=== PATIENT | male | born 1950 | race Caucasian/White ===

== ENCOUNTER → 2017-03-10 | Outpatient (CLI) | payer MEDICARE ==
[~2017-03-10] MED LIST: ALBUPOW38 PO; DIAZ5TAB PO; ENOX40P SQ; FERR325T PO; HYDR-3583 PO; LEVO.125 PO; MAXA10TA2 PO; MS C200T2 PO; OXYC-360 PO; PHEN-414 PO; PHEN15TA8 PO; SUMA100T2 PO; SYNT25TA PO; VALI5TAB PO; VENTAER INH
[2017-03-10 12:37] LABS: AUTOMATED NEUTROPHIL # 4.8 TH/MM3 (1.8-7.7); BASOPHIL % 0.6 % (0.0-2.0); EOSINOPHIL # 0.1 TH/MM3 (0-0.4); HEMATOCRIT 39.9 % (39.0-51.0); HEMO FLAGS DIFF FINAL; LYMPH % 20.7 % (9.0-44.0); LYMPHOCYTE # 1.4 TH/MM3 (1.0-4.8); MEAN CELL VOLUME 90.2 FL (80.0-100.0); MEAN CORPUSCULAR HEMOGLOBIN 30.4 PG (27.0-34.0); MEAN CORPUSCULAR HGB CONC 33.7 % (32.0-36.0); MONO % 7.3 % (0.0-8.0); NEUT % 70.4 % (16.0-70.0); PLATELET COUNT 363 TH/MM3 (150-450); RED BLOOD COUNT 4.42 MIL/MM3 (4.50-5.90); RED CELL DISTRIBUTION WIDTH 13.7 % (11.6-17.2); WHITE BLOOD COUNT 6.8 TH/MM3 (4.0-11.0)
[2017-03-10 12:52] LABS: APTT (PATIENT) 27.1 SEC (24.3-30.1); PROTHROMBIN TIME - PATIENT 11.1 SEC (9.8-11.6)
[2017-03-10 13:09] LABS: ANION GAP 8 MEQ/L (5-15); AST (GOT) 23 U/L (15-37); BICARBONATE 25.7 MEQ/L (21.0-32.0); BLOOD UREA NITROGEN 12 MG/DL (7-18); CHLORIDE 104 MEQ/L (98-107); GLOMERULAR FILTRATION RATE 83 ML/MIN (>89); GLUCOSE,FASTING 89 MG/DL (74-99); POTASSIUM 3.8 MEQ/L (3.5-5.1); SODIUM (NA) 138 MEQ/L (136-145)
[2017-03-10 13:10] LABS: ALT (GPT) 27 U/L (12-78)
[2017-03-10 13:13] LABS: ALKALINE PHOSPHATASE 131 U/L (45-117); TOTAL BILIRUBIN ADULT 0.6 MG/DL (0.2-1.0)
--- NOTE | 2017-03-11 14:48 | EKG ---
Date Performed: 03/10/2017 Time Performed: 12:32:45 PTAGE: 66 years EKG: Sinus rhythm NORMAL ECG Compared to prior tracing no significant change PREVIOUS TRACING : 02/11/13 DOCTOR: Rocky Biswas Interpretating Date/Time 03/11/2017 14:47:27
== END ==
LOC: CPRE 12:04
PROVIDERS: ATTEND Orthopaedic Surgery
DX: Z01.812 Encounter for preprocedural laboratory examination (principal); Z01.810 Encounter for preprocedural cardiovascular examination; M22.41 Chondromalacia patellae, right knee
CPT/HCPCS: 36415; 80053; 85025; 85610; 85730; 93005

== ENCOUNTER → 2017-03-19 | Day surgery (SDC) | payer MEDICARE ==
[~2017-03-19] VITALS: Ht 182.9 cm; Wt 67.1 kg
[~2017-03-19] MED LIST changes: +*morphine SULFATE 8 MG/ML PERIprocedure ONLY ONE; +ACETAMINOPHEN/HYDROcodone 325 MG/5 MG TAB PO PRN; -ALBUPOW38 PO; +CHLORHEXIDINE GLUCONATE 2 % 1 PACK (2 CLOTHS) TOPICAL PRN; +CHLORHEXIDINE GLUCONATE 4% SOLN 120 ML BTL TOPICAL SCH; +CLINDAMYCIN 900 MG/NS 100 ML IV SCH; +DEXAMETHASONE SOD PHOS 4 MG/ML VIAL ONE; +DO NOT ADM ANY ANTICOAGULANT DRUGS PRN; -ENOX40P SQ; +FAMOTIDINE 20 MG/2 ML VIAL ONE; -FERR325T PO; +INSULIN HUMAN REGULAR 1,000 UNITS/10 ML VIAL SQ PRN; +KETOROLAC TROMETHAMINE 30 MG/ML (IVP) VIAL IVP ONE; +LACTATED RINGER'S 1000 ML IV PRN; +LIDOCAINE HCL 1% PF 5 ML AMPULE OTHER ONE; +METOPROLOL TARTRATE 25 MG TAB PO PRN; +MIDAZOLAM HCL 2 MG/2 ML VIAL ONE; +MORPHINE SULFATE 4 MG/ML INJ IV PUSH PRN; +ONDANSETRON HCL 4 MG/2 ML VIAL IV PRN; +ONDANSETRON HCL 4 MG/2 ML VIAL IV PUSH ONE; -OXYC-360 PO; -PHEN15TA8 PO; +PROPOFOL 200 MG/20 ML AMP IV ONE; +SODIUM CHLORID 0.9% 500 ML IV PRN; +SODIUM CHLORIDE 0.9% FLUSH 5 ML FLUSH IVF PRN; +SODIUM CHLORIDE 0.9% FLUSH 5 ML FLUSH IVF SCH; +SODIUM CHLORIDE 0.9% INJ 100 ML ONE; -SUMA100T2 PO; -SYNT25TA PO; -VALI5TAB PO; +VANCOMYCIN 1250 MG/NS 250 ML (for 70-84 kg) IV SCH
[2017-03-19 10:15] VITALS: BP 116/76; PULSE 68; TEMP 96.7; O2SAT 98
[2017-03-19 10:45] VITALS: RESP 18
--- NOTE | 2017-04-03 09:37 | MP ---
cc: MELANIA DOMINGO DATE OF SURGERY 04/03/2017 PREOPERATIVE DIAGNOSIS Severe chondromalacia right patella. POSTOPERATIVE DIAGNOSIS 1. Severe chondromalacia right patella. 2. Degenerative tears lateral meniscus. SURGEON Dr. Domingo ANESTHESIA General TECHNIQUE After induction of general anesthesia, the patient's right lower extremity was thoroughly prepped with alcohol and ChloraPrep and draped in routine fashion. The right leg had been placed in an AcuFlex leg norton with good padding and tourniquet over it. After application of Esmarch bandage, the tourniquet was inflated two 250 mmHg. A stab incision was made over the area lateral to the lower pole of patella and patellar tendon. Arthroscope was introduced. Irrigation established superior medially. An operative portal established medially adjacent to the lower pole of the patella and patellar tendon after placing an 18 gauge needle. Systematic visualization of the joint was carried out. There is severe chondromalacia of the central portion of the patella grade 3 with the lobster meat appearance. There are mild changes over the trochlear notch of the femur. There was no exposed bone. The intercondylar notch was normal. The medial compartment showed some chondromalacia, but no other problem. The lateral compartment showed significant tears of the inner margin of the lateral meniscus, but no peripheral tear. Partial lateral meniscectomy was then carried out with a small open-ended shaver. Chondroplasty was then carried out using the ArthroCare system to smoothen out the cartilage. The joint was thoroughly lavaged and suctioned out. Instrumentation withdrawn. The portals were closed with single 3-0 nylon vertical mattress sutures. Dressings were applied with Xeroform, 4x4s, ABD, Sof-Rol and Kaiden bandage. The tourniquet was released. The patient transferred to the recovery room in satisfactory condition. The patient tolerated the procedure well. COMPLICATIONS None POSTOPERATIVE CONDITION Satisfactory PROGNOSIS Fair to good. MD FEDERICO Carrion/MALACHI /8:18 AM /9:31 AM
== END | disposition home or self-care (01) ==
LOC: HSDC 05:27
PROVIDERS: ATTEND Orthopaedic Surgery
DX: M22.41 Chondromalacia patellae, right knee (principal); S83.281A Other tear of lateral meniscus, current injury, right knee, initial encounter; M25.561 Pain in right knee
CPT/HCPCS: 01400; 29881; J1100; J1885; J2250; J2270; J2405; J3010; J3370; J7050; J7120